=== PATIENT | female | born 1970 | race Asian ===

== ENCOUNTER 2018-06-17 00:52 | Emergency (ER) | payer BC, OTHER ==
[~2018-06-17] VITALS: Ht 154.9 cm; Wt 48.5 kg
[2018-06-17 00:52] VITALS: BP_SYST 141
[2018-06-17] MEDS ORDERED: KETOROLAC TROMETHAMINE 30 MG VIAL IVP ONE (01:15)
[2018-06-17] MEDS ORDERED: ASPIRIN 81 MG TAB.CHEW PO ONE (01:15)
[2018-06-17 01:28] LABS: BASOPHILS # (AUTO) 0.1 K/uL (0.0-0.2); EOSINOPHILS % (AUTO) 0.2 % (0.0-4.0); HEMATOCRIT 41.4 % (36-48); HEMOGLOBIN 13.9 g/dL (12.0-16.0); LYMPHOCYTES # (AUTO) 1.7 K/uL (1.0-5.5); LYMPHOCYTES % (AUTO) 22.3 % (20.5-51.5); MEAN CORPUSCULAR HEMOGLOBIN 30 pg (27-31); MEAN CORPUSCULAR HGB CONC 34 % (32-36); MEAN CORPUSCULAR VOLUME 89 fL (79.0-98.0); MONOCYTES # (AUTO) 0.3 K/uL (0.0-1.0); MONOCYTES % (AUTO) 3.6 % (1.7-9.3); NEUTROPHILS # (AUTO) 5.6 K/uL (1.8-7.7); NEUTROPHILS % (AUTO) 72.9 % (40.0-70.0); PLATELET COUNT (AUTO) 261 K/uL (130-430); RED BLOOD CELL COUNT(AUTO) 4.64 MIL/uL (4.2-6.2); RED CELL DISTRIBUTION WIDTH 12.5 % (9.0-15.0); WHITE BLOOD COUNT (AUTO) 7.7 K/uL (4.8-10.8)
[2018-06-17 01:33] LABS: CREATININE 0.73 mg/dL (0.55-1.30); POTASSIUM 3.4 mmol/L (3.5-5.1)
[2018-06-17 01:40] LABS: ALBUMIN 4.3 g/dL (3.4-4.8); TOTAL BILIRUBIN 0.4 mg/dL (0.0-1.0)
[2018-06-17 02:16] VITALS: BP_SYST 130
== END 2018-06-17 02:16 | disposition home or self-care (01) ==
LOC: SED 00:52
DX: K52.9 Noninfective gastroenteritis and colitis, unspecified (principal); M94.0 Chondrocostal junction syndrome [Tietze]; R03.0 Elevated blood-pressure reading, without diagnosis of hypertension
CPT/HCPCS: 36415; 71045; 80053; 82550; 84484; 85025; 85610; 93005; 96374; 99285; J1885

== ENCOUNTER 2019-03-24 22:15 | Emergency (ER) | payer BC, OTHER ==
[~2019-03-24] VITALS: Ht 154.9 cm; Wt 47.6 kg
[2019-03-24 22:20] VITALS: BP_SYST 138
--- NOTE | 2019-03-24 22:20 | NUR ---
Note undone in EDM - 03/24/19 at 2246 by [email or web address] Pt to ER bed 01, to gown, to cardiac rehabilitation specialist. Pt c/o swelling to lower lip since 19:30. Denies SOB or C/P, airway patent, respirations even and non-labored, BBS clear. Pt states that she had pork and noodles for dinner, but no seafood. Denies seafood allergy. Pt also states that she's been working in the yard for most of the day.
--- NOTE | 2019-03-24 22:20 | NUR ---
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 Pt c/o swelling to lower lip since 19:30. Denies SOB or C/P, airway patent, respirations even and non-labored, BBS clear. Pt states that she had pork and noodles for dinner, but no seafood. Denies seafood allergy. Pt also states that she's been working in the yard for most of the day.
[2019-03-24] MEDS ORDERED: DIPHENHYDRAMINE INJ 50 MG/ML VIAL IVP ONE (22:30)
[2019-03-24] MEDS ORDERED: methylPREDNISolone SOD SUCC/PF 62.5 MG/ML VIAL IVP ONE (22:30)
--- NOTE | 2019-03-24 22:30 | NUR ---
Dr. Fuentes at bedside.
--- NOTE | 2019-03-24 23:30 | NUR ---
Improvement noted to swelling of lip. Airway remains patent, no needs verbalized at this time. VSS, NAD.
[2019-03-25 00:31] VITALS: BP_SYST 138
--- NOTE | 2019-03-25 00:31 | NUR ---
Patient given written and verbal discharge instructions and verbalizes understanding. ER MD discussed with patient the results and treatment provided. Patient in stable condition. ID arm band removed. IV catheter removed intact and dressing applied, no active bleeding. Rx of Prednisone and Cherelle given. Patient educated on pain management and to follow up with PMD. Pain Scale 0. Opportunity for questions provided and answered. Medication side effect fact sheet provided.
== END 2019-03-25 00:31 | disposition home or self-care (01) ==
LOC: SED 22:15
DX: T78.3XXA Angioneurotic edema, initial encounter (principal); X58.XXXA Exposure to other specified factors, initial encounter
CPT/HCPCS: 96374; 96375; 99283; J1200; J2930